=== PATIENT | male | born 1970 | race Caucasian/White ===

== ENCOUNTER 2017-09-13 13:48 | Emergency (ER) | payer OTHER ==
--- NOTE | 2017-09-13 13:57 | PDOC ---
History of Present Illness - General Chief Complaint: Bite Stated Complaint: BUG BITE TO LEFT SIDE OF NECK IN BACK Time Seen by Provider: 09/13/17 13:52 History Source: Patient Exam Limitations: No Limitations - History of Present Illness Initial Comments: 09/13/17 13:52 46 y/o male with left sided neck redness and itching. Took Benadryl today without relief. No SOB or chest pain. No N/V/d/c. No new products. Feels like he was bit by something. UTD with Tetanus. Timing/Duration: reports: just prior to arrival Severity: Yes: mild Respiratory Risk Factors: reports: no cause identified Past History - Past Medical History Allergies/Adverse Reactions: Allergies Allergy/AdvReac Type Severity Reaction Status Date / Time shellfish derived Allergy Severe Swelling Verified 09/13/17 13:49 Home Medications: Ambulatory Orders Atorvastatin Ca [Lipitor] 10 mg PO DAILY 09/13/17 Cephalexin Monohydrate [Keflex -] 500 mg PO Q8H #15 capsule 09/13/17 Esomeprazole Magnesium [Nexium 24Hr] 20 mg PO DAILY 09/13/17 Losartan Potassium 50 mg PO DAILY 09/13/17 Prednisone [Deltasone -] 20 mg PO BID #6 tablet 09/13/17 Review of Systems - Review of Systems Able to Perform ROS?: Yes Is the patient limited Nigerien proficient: No Constitutional: No: Chills, Fever Respiratory: No: Cough, Shortness of Breath Cardiac (ROS): No: Chest Pain ABD/GI: No: Abdominal Distended, Nausea, Vomiting Musculoskeletal: No: Back Pain, Joint Pain, Muscle Pain Integumentary: Yes: Erythema, Pruritus All Other Systems: Reviewed and Negative *Physical Exam - Physical Exam General Appearance: Yes: Nourished, Appropriately Dressed. No: Apparent Distress HEENT: positive: EOMI, MELITA, Normal ENT Inspection, Normal Voice, Symmetrical, Pharynx Normal Neck: positive: Trachea midline, Normal Thyroid, Supple. negative: Tender, Rigid, Carotid bruit Respiratory/Chest: positive: Lungs Clear, Normal Breath Sounds. negative: Chest Tender, Respiratory Distress Cardiovascular: positive: Regular Rhythm, Regular Rate, S1, S2. negative: Edema , JVD, Murmur Vascular Pulses: Femoral (R): 4+, Femoral (L): 4+, Carotid (R): 4+, Carotid (L) : 4+, Dorsalis-Pedis (R): 4+, Doralis-Pedis (L): 4+ Gastrointestinal/Abdominal: positive: Normal Bowel Sounds, Flat, Soft. negative : Tender Lymphatic: negative: Adenopathy, Tenderness, Other Musculoskeletal: positive: Normal Inspection. negative: CVA Tenderness Extremity: positive: Normal Capillary Refill, Normal Inspection, Normal Range of Motion Integumentary: positive: Normal Color, Dry, Warm, Erythema (left side of neck with erythema, firm raised areas, no fluctuance, no pustules or blisters), Rash. 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, Fully Oriented, Alert, Normal Mood/ Affect, Normal Response, Motor Strength 5/5 Progress Note - Progress Note Progress Note: Pt appears to have a localized reaction to left side of necj with possible superinfection (cellulitis) I will treat with Prednisone and Keflex Pt is in agreement with plan IF worsen return to ER *DC/Admit/Observation/Transfer Diagnosis at time of Disposition: Cellulitis, neck Contact dermatitis Qualifiers: Contact dermatitis type: unspecified Contact dermatitis trigger: unspecified trigger Qualified Code(s): L25.9 - Unspecified contact dermatitis, unspecified cause - Discharge Dispostion Condition at time of disposition: Stable Admit: No - Prescriptions Prescriptions: Cephalexin Monohydrate [Keflex -] 500 mg PO Q8H #15 capsule Prednisone [Deltasone -] 20 mg PO BID #6 tablet - Referrals - Patient Instructions Printed Discharge Instructions: DI for Cellulitis -- Adult, DI for Contact Dermatitis Additional Instructions: Keflex 500mg 3x/day for 5 days Prednisone 20 mg 2x/day for 3 days Benadryl 25 mg every 6 hr as needed Cold compress to area If worsen return to ER - Post Discharge Activity
[2017-09-13 14:00] VITALS: BP 149/92; PULSE 98; TEMP 98.1; BMI 40.1
== END 2017-09-13 14:09 | disposition home or self-care (01) ==
LOC: FER 13:48
DX: L25.9 Unspecified contact dermatitis, unspecified cause (principal)
CPT/HCPCS: 99281-25

== ENCOUNTER 2019-09-18 02:38 | Observation (INO) | payer OTHER ==
[2019-09-18 02:46] VITALS: BMI 40.8
--- NOTE | 2019-09-18 02:53 | PDOC ---
Attending Attestation - Resident Resident Name: SarojLevi alvarenga - ED Attending Attestation I have performed the following: I have examined & evaluated the patient, The case was reviewed & discussed with the resident, I agree w/resident's findings & plan - HPI HPI: 09/18/19 02:54 Pt is obese and complains of CP - Physicial Exam PE: 09/18/19 02:54 Agree with resident exam - Medical Decision Making 09/18/19 02:54 EKG is NSR. 09/18/19 05:44 CBC INR and COMP are all normal Pt's exam is normal/ 09/18/19 05:46 Pt is obese and he has HTN that is not controlled and he is a 30 pack-year smoker. He will be admitted for ACS. 09/18/19 05:55 BP is 127 systolic. I will cancel the diovan. ONLY ASA will be given Heart Score/ECG Review - History History: Moderately suspicious - Electrocardiogram EKG: Normal - Age Age: 45-65 - Risk Factors Risk Factors Heart Score: Yes Hx Hypertension, Yes Smoking History, Yes Positive family hx of cardiac disease, Yes Hx Obesity Based on the list above the patient has:: >/=3 risk factors or Hx atherosclerotic disease - Troponin Troponin: </= normal limit - Score Heart Score - Total: 4 - ECG Intrepretation Rhythm: Regular Rhythm - [place]: Normal - P and PA Delta Wave(s) Present: No WPW: No - QRS Poor R Wave Progression: No Q Wave Present: No - ST and T Flattened T Waves: No Prolonged Q-T Interval: No - ECG Impressions Normal ECG: Yes Non-specific ST Elevation: No Ischemic Changes: No Bradycardia: No Torsades mari Pointes: No WPW: No
--- NOTE | 2019-09-18 03:34 | PDOC ---
History of Present Illness - General Chief Complaint: Chest Pain Stated Complaint: CHEST PAIN Time Seen by Provider: 09/18/19 02:53 History Source: Patient Exam Limitations: No Limitations - History of Present Illness Initial Comments: 09/18/19 03:23 48 yo male pmh HTN (does not take medication) and 30 pack year hx smoking presents to the ED for sudden onset CP. Pt states the CP woke him up out of sleep this am, described as pressure, non radiating, denies N/V or diaphoresis, pain is non pleuritic and non exertional. Pt never had CP before, not followed by Cardiology. Denies calf swelling/tenderness, recent travel, SOB, back pain, abdominal pain, changes in bowel or bladder habits, F/C/N/V, recent illness Past History - Past Medical History Allergies/Adverse Reactions: Allergies Allergy/AdvReac Type Severity Reaction Status Date / Time shellfish derived Allergy Severe Swelling Verified 09/18/19 02:44 Home Medications: Ambulatory Orders Atorvastatin Ca [Lipitor] 10 mg PO DAILY 09/13/17 Cephalexin Monohydrate [Keflex -] 500 mg PO Q8H #15 capsule 09/13/17 Esomeprazole Magnesium [Nexium 24Hr] 20 mg PO DAILY 09/13/17 Losartan Potassium 50 mg PO DAILY 09/13/17 predniSONE [Deltasone -] 20 mg PO BID #6 tablet 09/13/17 COPD: No GI Disorders: Yes (GERD) HTN: Yes Hypercholesterolemia: Yes - Psycho Social/Smoking Cessation Hx Smoking History: Unknown if ever smoked Have you smoked in the past 12 months: No Number of Cigarettes Smoked Daily: 10 Information on smoking cessation initiated: No 'Breaking Loose' booklet given: 09/13/17 Hx Alcohol Use: No Drug/Substance Use Hx: No Substance Use Type: Alcohol, Marijuana Review of Systems - Review of Systems Constitutional: No: Chills, Fever Respiratory: No: Shortness of Breath Cardiac (ROS): Yes: Chest Pain. No: Edema, Syncope ABD/GI: No: Constipated, Diarrhea, Nausea, Vomiting : No: Burning, Dysuria, Frequency, Flank Pain Musculoskeletal: No: Back Pain Neurological: No: Headache, Numbness, Paresthesia *Physical Exam - Vital Signs Last Vital Signs Temp Pulse Resp BP Pulse Ox 97.9 F 100 H 20 160/85 94 L 09/18/19 02:44 02/02/20 02:44 09/18/19 02:44 09/18/19 02:44 09/18/19 02:44 - Physical Exam General Appearance: Yes: Nourished, Appropriately Dressed. No: Apparent Distress HEENT: positive: EOMI Neck: positive: Supple. negative: Carotid bruit Respiratory/Chest: positive: Lungs Clear, Normal Breath Sounds. negative: Respiratory Distress, Crackles, Rales, Rhonchi, Stridor, Wheezing Cardiovascular: positive: Regular Rhythm, S1, S2, Tachycardia. negative: Edema , JVD, Murmur Vascular Pulses: Dorsalis-Pedis (R): 4+, Doralis-Pedis (L): 4+ Gastrointestinal/Abdominal: positive: Flat, Soft. negative: Pulsatile Mass, Protuberent, Distended, Guarding, Rebound, Tenderness Musculoskeletal: negative: CVA Tenderness Extremity: positive: Normal Capillary Refill, Normal Inspection, Normal Range of Motion Integumentary: positive: Normal Color, Dry, Warm Neurologic: positive: Fully Oriented, Alert, Normal Mood/Affect, Normal Response Heart Score/ECG Review - History History: Moderately suspicious - Electrocardiogram EKG: Normal - Age Age: 45-65 - Risk Factors Risk Factors Heart Score: Yes Hx Hypertension, Yes Smoking History, Yes Hx Obesity Based on the list above the patient has:: >/=3 risk factors or Hx atherosclerotic disease - Troponin Troponin: </= normal limit - Score Heart Score - Total: 4 - ECG Intrepretation Rhythm: Regular Rhythm - [employer]: Normal ED Treatment Course - LABORATORY CBC & Chemistry Diagram: 09/18/19 03:33 09/18/19 03:33 - RADIOLOGY Radiology Studies Ordered: Category Date Time Status CHEST PA & LAT [RAD] Stat Radiology 09/18/19 02:59 Ordered Medical Decision Making - Medical Decision Making 09/18/19 03:34 48 yo male pmh HTN (does not take medication) and 30 pack year hx smoking presents to the ED for sudden onset CP. Pt states the CP woke him up out of sleep this am, described as pressure, non radiating, denies N/V or diaphoresis, pain is non pleuritic and non exertional. Pt never had CP before, not followed by Cardiology. Denies calf swelling/tenderness, recent travel, SOB, back pain, abdominal pain, changes in bowel or bladder habits, F/C/N/V, recent illness vitals show elevated HR 100 and BP 160 systolic Chest pain work up including CXR, EKG and Trops EKG NSR without ischemic changes CXR no acute path Heart Score 4 Labs WNL including trops Pt requires admission for ACS workup Discussed case with Dr. Cortez who agrees to admit to Tele obs Discharge - Discharge Information Problems reviewed: Yes Clinical Impression/Diagnosis: Chest pain Condition: Stable - Admission Yes - Follow up/Referral Referrals: Toñito Fang MD [Primary Care Provider] - - Patient Discharge Instructions - Post Discharge Activity
[2019-09-18 04:00] LABS: BASO % 0.5 % (0-2.0); EOS % 2.2 % (0-4.5); HEMATOCRIT 42.6 % (35.4-49); HEMOGLOBIN 14.5 GM/dL (11.7-16.9); LYMPH % 18.8 % (8-40); MCH 30.2 pg (25.7-33.7); MCHC 34.1 g/dl (32.0-35.9); MEAN CELL VOLUME 88.5 fl (80-96); MEAN PLT VOLUME 8.2 fl (7.5-11.1); MONO % 7.1 % (3.8-10.2); NEUT % 71.4 % (42.8-82.8); PLATELET COUNT 210 K/MM3 (134-434); RBC 4.81 M/mm3 (4.00-5.60); RDW 13.8 % (11.9-15.9); WHITE BLOOD COUNT 8.8 K/mm3 (4.0-10.0)
[2019-09-18 04:11] LABS: INR 0.98 (0.83-1.09); PROTHROMBIN TIME (PATIENT) 11.6 SEC (9.7-13.0)
[2019-09-18 04:14] LABS: ACTIVATED PTT 33.5 SECONDS (25.2-36.5)
[2019-09-18 04:36] LABS: GLUCOSE,RANDOM 151 mg/dL (74-106)
[2019-09-18 04:37] LABS: CALCIUM 9.2 mg/dL (8.5-10.1); CHLORIDE 102 mmol/L (98-107); CO2 28 mmol/L (21-32); POTASSIUM 3.8 mmol/L (3.5-5.1)
[2019-09-18 04:39] LABS: SGOT/AST 23 U/L (15-37); SGPT/ALT 40 U/L (13-61)
[2019-09-18 05:09] LABS: BILIRUBIN,TOTAL 0.4 mg/dL (0.2-1)
[2019-09-18] MEDS ORDERED: VALSARTAN 80 MG TABLET (UD) PO ONE (05:46)
[2019-09-18] MEDS ORDERED: ASPIRIN 81 MG CHEWABLE TABLETS PO ONE (05:46)
[2019-09-18] MEDS ORDERED: ASPIRIN 81 MG CHEWABLE TABLETS ONE (05:49)
[2019-09-18] MEDS ORDERED: VALSARTAN 80 MG TABLET (UD) ONE (05:49)
--- NOTE | 2019-09-18 10:34 | CON.CARD ---
Consult Consult Specialty:: Cardiology - History of Present Illness History of Present Illness: 48 yo male pmh HTN (does not take medication) and 30 pack year hx smoking presents to the ED for sudden onset CP. Pt states the CP woke him up out of sleep this am, described as pressure, non radiating, denies N/V or diaphoresis, pain is non pleuritic and non exertional. Pt never had CP before, not followed by Cardiology. Denies calf swelling/tenderness, recent travel, SOB, back pain, abdominal pain, changes in bowel or bladder habits, F/C/N/V, recent illness Admits to smoking marijuana. - History Source History Provided By: Patient, Medical Record - Past Medical History Cardio/Vascular: Yes: HTN, Hyperlipdemia - Alcohol/Substance Use Hx Alcohol Use: No - Smoking History Smoking history: Unknown if ever smoked Have you smoked in the past 12 months: No Aproximately how many cigarettes per day: 10 Home Medications - Allergies Allergies/Adverse Reactions: Allergies Allergy/AdvReac Type Severity Reaction Status Date / Time shellfish derived Allergy Severe Swelling Verified 09/18/19 02:44 - Home Medications Home Medications: Ambulatory Orders Atorvastatin Ca [Lipitor] 10 mg PO DAILY 09/13/17 Cephalexin Monohydrate [Keflex -] 500 mg PO Q8H #15 capsule 09/13/17 Esomeprazole Magnesium [Nexium 24Hr] 20 mg PO DAILY 09/13/17 Losartan Potassium 50 mg PO DAILY 09/13/17 predniSONE [Deltasone -] 20 mg PO BID #6 tablet 09/13/17 Review of Systems - Review of Systems Constitutional: reports: No Symptoms Eyes: reports: No Symptoms HENT: reports: No Symptoms Neck: reports: No Symptoms Cardiovascular: reports: Chest Pain Gastrointestinal: reports: No Symptoms Genitourinary: reports: No Symptoms Breasts: reports: No Symptoms Reported Musculoskeletal: reports: No Symptoms Integumentary: reports: No Symptoms Neurological: reports: No Symptoms Endocrine: reports: No Symptoms Hematology/Lymphatic: reports: No Symptoms Psychiatric: reports: No Symptoms Vital Signs: Vital Signs Temperature 97.9 F 09/18/19 02:44 Pulse Rate 92 H 09/18/19 06:55 Respiratory Rate 20 09/18/19 06:55 Blood Pressure 127/75 09/18/19 06:55 O2 Sat by Pulse Oximetry (%) 96 09/18/19 06:55 Constitutional: Yes: Well Nourished, No Distress, Calm Eyes: Yes: WNL, Conjunctiva Clear, EOM Intact HENT: Yes: WNL, Atraumatic, Normocephalic Neck: Yes: WNL, Supple, Trachea Midline Respiratory: Yes: WNL, Regular, CTA Bilaterally Gastrointestinal: Yes: WNL, Normal Bowel Sounds Renal/: Yes: WNL Cardiovascular: Yes: WNL, Regular Rate and Rhythm Musculoskeletal: Yes: WNL Extremities: Yes: WNL Integumentary: Yes: WNL Neurological: Yes: WNL, Alert, Oriented ...Motor Strength: WNL Psychiatric: Yes: WNL, Alert, Oriented - Other Data Labs, Other Data: CBC, BMP 09/18/19 03:33 09/18/19 03:33 INR, PTT INR 0.98 (0.83-1.09) 09/18/19 03:33 Troponin, BNP 09/18/19 03:33 Troponin I < 0.02 Troponin, BNP 09/18/19 03:33 Troponin I < 0.02 Imaging - Results Chest X-ray: Image Reviewed (no i/e) EKG: Image Reviewed (sr wnl) Problem List - Problems (1) Chest pain Code(s): R07.9 - CHEST PAIN, UNSPECIFIED (2) Cellulitis, neck Code(s): L03.221 - CELLULITIS OF NECK (3) Contact dermatitis Code(s): L25.9 - UNSPECIFIED CONTACT DERMATITIS, UNSPECIFIED CAUSE Assessment/Plan Imp; Chest pain sx nl ekg first ce neg htn morbid obesity Plan; DVT PLX bnp asa bb echo EST if 3 sets of CE negative PE less likely no edema, no h/o immobilization, no sob, no tachycardia. Will check d-dimer
[2019-09-18] MEDS ORDERED: METOPROLOL TARTRATE 25 MG TABLET (FP) PO SCH (10:45)
[2019-09-18 10:47] LABS: ALK PHOS 75 U/L (45-117); ANION GAP 7 MMOL/L (8-16); BLOOD UREA NITROGEN 19.2 mg/dL (7-18); MAGNESIUM 2.3 mg/dL (1.8-2.4); SODIUM 136 mmol/L (136-145); TOT PROT 7.1 g/dl (6.4-8.2)
[2019-09-18] MEDS ORDERED: ASPIRIN COATED 81 MG TABLET.EC ONE (11:24)
[2019-09-18] MEDS ORDERED: METOPROLOL TARTRATE 25 MG TABLET (FP) ONE (11:24)
--- NOTE | 2019-09-18 13:57 | EKG ---
Test Reason : Blood Pressure : / mmHG Vent. Rate : 098 BPM Atrial Rate : 098 BPM P-R Int : 158 ms QRS Dur : 078 ms QT Int : 348 ms P-R-T Axes : 061 030 050 degrees QTc Int : 444 ms NORMAL SINUS RHYTHM LEFT ATRIAL ENLARGEMENT BORDERLINE ECG Confirmed by MD CHALO, OSCAR ([id number]) on 09/18/2019 1:57:12 PM Referred By: Confirmed By:OSCAR ISABEL MD
--- NOTE | 2019-09-18 15:43 | HP ---
Admitting History and Physical - Past Medical History Cardiovascular: Yes: HTN, Hyperlipdemia - Smoking History Smoking history: Unknown if ever smoked Have you smoked in the past 12 months: No Aproximately how many cigarettes per day: 10 - Alcohol/Substance Use Hx Alcohol Use: No Home Medications - Allergies Allergies/Adverse Reactions: Allergies Allergy/AdvReac Type Severity Reaction Status Date / Time shellfish derived Allergy Severe Swelling Verified 09/18/19 02:44 - Home Medications Home Medications: Ambulatory Orders Atorvastatin Ca [Lipitor] 10 mg PO DAILY 09/13/17 Cephalexin Monohydrate [Keflex -] 500 mg PO Q8H #15 capsule 09/13/17 Esomeprazole Magnesium [Nexium 24Hr] 20 mg PO DAILY 09/13/17 Losartan Potassium 50 mg PO DAILY 09/13/17 predniSONE [Deltasone -] 20 mg PO BID #6 tablet 09/13/17 Physical Examination Vital Signs: Vital Signs Temperature 97.9 F 09/18/19 02:44 Pulse Rate 92 H 09/18/19 06:55 Respiratory Rate 20 09/18/19 06:55 Blood Pressure 127/75 09/18/19 06:55 O2 Sat by Pulse Oximetry (%) 96 09/18/19 06:55 Labs: CBC, BMP 09/18/19 03:33 09/18/19 03:33
[2019-09-18 15:58] VITALS: TEMP 97.6
[2019-09-18 16:00] VITALS: BP 124/74; PULSE 88
[2019-09-18] MEDS ORDERED: ASPIRIN 300 MG SUPP.RECT RC ONE (16:08)
--- NOTE | 2019-09-19 09:20 | EKG ---
Test Reason : Blood Pressure : / mmHG Vent. Rate : 073 BPM Atrial Rate : 073 BPM P-R Int : 146 ms QRS Dur : 088 ms QT Int : 400 ms P-R-T Axes : 065 028 036 degrees QTc Int : 440 ms NORMAL SINUS RHYTHM NORMAL ECG WHEN COMPARED WITH ECG OF 18-SEP-2019 02:51, NO SIGNIFICANT CHANGE WAS FOUND Confirmed by Felipe Stanton ([id number]) on 09/19/2019 9:20:30 AM Referred By: Confirmed By:Felipe Stanton
[2019-09-19] MEDS ORDERED: ASPIRIN COATED 81 MG TABLET.EC PO SCH (10:00)
== END 2019-09-18 15:00 | disposition left against medical advice (07) ==
LOC: JER 02:38 → JERBED 04:52
PROVIDERS: ADMIT Internal Medicine; ATTEND Internal Medicine
DX: R07.89 Other chest pain (principal); I10 Essential (primary) hypertension; E78.5 Hyperlipidemia, unspecified; K21.9 Gastro-esophageal reflux disease without esophagitis; L03.221 Cellulitis of neck; L25.9 Unspecified contact dermatitis, unspecified cause; E66.9 Obesity, unspecified; Z68.41 Body mass index [BMI] 40.0-44.9, adult; Z87.891 Personal history of nicotine dependence; Z82.49 Family history of ischemic heart disease and other diseases of the circulatory system; Z91.013 Allergy to seafood
CPT/HCPCS: 36415; 71046-TC-FY; 80053; 82550; 82553; 83735; 84484; 85025; 85379; 85610; 85730; 93005; 93010; 99285-25; G0378

== ENCOUNTER 2022-04-15 22:17 | Emergency (ER) | payer OTHER ==
[2022-04-15 22:28] VITALS: BP 150/96; PULSE 90; RESP 20; TEMP 98.1; BMI 38.0
== END 2022-04-16 00:33 | disposition home or self-care (01) ==
LOC: FER 22:17
DX: F41.9 Anxiety disorder, unspecified (principal)
CPT/HCPCS: 36415; 82550; 84484; 93005; 99283-25

== ENCOUNTER 2022-09-05 10:11 | Emergency (ER) | payer OTHER ==
[2022-09-05 10:41] VITALS: BP 146/89; PULSE 84; RESP 20; TEMP 98.9; BMI 37.3
[2022-09-05] MEDS ORDERED: KETOROLAC TROMETHAMINE 30 MG/1 ML VIAL IM ONE (11:08)
[2022-09-05] MEDS ORDERED: LIDOCAINE 5% TOPICAL PATCH TP ONE (11:09)
[2022-09-05] MEDS ORDERED: KETOROLAC TROMETHAMINE 30 MG/1 ML VIAL ONE (11:24)
[2022-09-05] MEDS ORDERED: LIDOCAINE 5% TOPICAL PATCH ONE (11:25)
[2022-09-05] MEDS ORDERED: LIDOCAINE PATCH REMOVAL MC SCH (22:00)
== END 2022-09-05 13:34 | disposition home or self-care (01) ==
LOC: FER 10:11
PROC: 3E023GC Introduction of Other Therapeutic Substance into Muscle, Percutaneous Approach (ICD-10-PCS; principal; 2022-09-05)
DX: M25.512 Pain in left shoulder (principal)
CPT/HCPCS: 71046-TC-FY; 73030-TC-RT-FY; 99284-25

== ENCOUNTER 2022-09-06 08:21 | Emergency (ER) | payer OTHER ==
[2022-09-06 08:35] VITALS: BP 140/74; PULSE 77; RESP 18; TEMP 98.2; BMI 37.3
[2022-09-06] MEDS ORDERED: IBUPROFEN 600 MG TABLET (FP) PO ONE ×2 (09:30→09:37)
[2022-09-06] MEDS ORDERED: METHOCARBAMOL 500 MG TABLET PO ONE (09:30)
[2022-09-06] MEDS ORDERED: METHOCARBAMOL 500 MG TABLET ONE (09:37)
== END 2022-09-06 11:27 | disposition home or self-care (01) ==
LOC: JER 08:21
DX: S46.911A Strain of unspecified muscle, fascia and tendon at shoulder and upper arm level, right arm, initial encounter (principal); M62.830 Muscle spasm of back; X50.0XXA Overexertion from strenuous movement or load, initial encounter
CPT/HCPCS: 72128-TC; 99284-25

== ENCOUNTER 2022-09-07 08:20 | Emergency (ER) | payer OTHER ==
[2022-09-07 08:23] VITALS: BP 164/80; PULSE 80; RESP 18; TEMP 97.6; BMI 37.3
[2022-09-07] MEDS ORDERED: SODIUM CHLORIDE 1,000 ML IV STA (09:18)
[2022-09-07] MEDS ORDERED: ACETAMINOPHEN 1000 MG/100 ML BAG IVPB ONE (09:18)
[2022-09-07] MEDS ORDERED: ACETAMINOPHEN INJECTION 100 ML IVPB ONE (09:42)
[2022-09-07 10:28] LABS: BASO % 0.6 % (0-2.0); EOS % 2.6 % (0-4.5); HEMATOCRIT 42.7 % (35.4-49); HEMOGLOBIN 14.6 GM/dL (11.7-16.9); LYMPH % 23.8 % (8-40); MCH 30.2 pg (25.7-33.7); MCHC 34.1 g/dl (32.0-35.9); MEAN CELL VOLUME 88.6 fl (80-96); MEAN PLT VOLUME 8.1 fl (7.5-11.1); MONO % 7.4 % (3.8-10.2); NEUT % 65.6 % (42.8-82.8); PLATELET COUNT 250 10^3/uL (134-434); RBC 4.82 M/mm3 (4.00-5.60); RDW 13.5 % (11.9-15.9); WHITE BLOOD COUNT 6.4 K/mm3 (4.0-10.0)
[2022-09-07 10:39] LABS: INR 1.01 (0.83-1.09); PROTHROMBIN TIME (PATIENT) 11.6 SEC (9.7-13.0)
[2022-09-07 10:42] LABS: ACTIVATED PTT 31.1 SECONDS (25.2-36.5)
[2022-09-07 10:49] LABS: CALCIUM 9.5 mg/dL (8.5-10.1)
[2022-09-07 10:50] LABS: ALBUMIN 4.4 g/dl (3.4-5.0); BLOOD UREA NITROGEN 16.8 mg/dL (7-18); MAGNESIUM 2.2 mg/dL (1.8-2.4)
[2022-09-07 10:53] LABS: CREATININE 0.9 mg/dL (0.55-1.3)
[2022-09-07 10:54] LABS: BILIRUBIN,TOTAL 0.5 mg/dL (0.2-1)
[2022-09-07 10:55] LABS: TOT PROT 7.7 g/dl (6.4-8.2)
== END 2022-09-07 13:19 | disposition home or self-care (01) ==
LOC: JER 08:20
PROC: 3E0333Z Introduction of Anti-inflammatory into Peripheral Vein, Percutaneous Approach (ICD-10-PCS; principal; 2022-09-07)
PROC: 3E0337Z Introduction of Electrolytic and Water Balance Substance into Peripheral Vein, Percutaneous Approach (ICD-10-PCS; 2022-09-07)
DX: M79.621 Pain in right upper arm (principal); M25.511 Pain in right shoulder
CPT/HCPCS: 36415; 71046-TC-FY; 80053; 83735; 84484; 85025; 85379; 85610; 85730; 86850; 86900; 86901; 93005; 93010; 99285-25; C9803-CS; U0003; U0005